=== PATIENT | female | born 2000 | race Caucasian/White ===

== ENCOUNTER 2025-08-05 04:46 | Inpatient (IN) | payer BC, SELFPAY ==
--- OUTSIDE RECORDS SUMMARY | 2025-07-22 16:30 | XMS_ITS | Encounter Summary ---
Author Organization [facility] Address [address] [place] [address] Care Team Providers Care Compressor Station Engineer Chief Name Role Phone Unavailable Primary Care Provider Unavailabl e Encounter Details DateTypeDepartmentCare Team (Latest Contact Info)Iqxshlbzckb37/18/2025 4:30 PM [facility]outine [facility] [address] [place] [phone] Merced Vasquez, CNM [address] [place] [address] Encounter for care of first , third trimester ([facility]) (Primary Dx); Elevated blood pressure affecting in second trimester, antepartum ([facility]) Social History Tobacco UseTypesPacks/DayYears UsedDateSmoking Tobacco: NeverSmokeless Tobacco: NeverAlcohol UseStandard Drinks/WeekCommentsNot Currently0 (1 standard drink = 0.6 oz pure alcohol)Estimated Date of UbfeckynXwreewpoQqw89/06/2025Based on last menstrual period of 11/02/2024 (Exact Date)Sex and Gender InformationValue Date RecordedSex Assigned at OoipkNjgnpi98/13/2025 1:56 PM ESTLegal SexFemale 11/16/2022 7:32 PM EDTGender AftcacdvMdbweo17/13/2025 1:56 PM ESTSexual QrkelauqiftDuhfcxfe61/13/2025 1:56 PM ESTdocumented as of this encounter Last Filed Vital Signs Vital SignReadingTime TakenCommentsBlood Dsbfchhw005/8011 4:17 PM EST Pulse--Temperature--Respiratory Rate--Oxygen Saturation--Inhaled Oxygen Concentration--Gmjyoz30.2 kg (185 lb 9.6 oz)07/22/2025 4:17 PM ESTHeight--Body Mass Index31.8602 12:00 PM ESTdocumented in this encounter Progress Notes * Merced Vasquez CNM - 07/22/2025 4:30 PM EST Subjective No chief complaint on file. Marcelo Alcantar is a 25 y.o. at 37w3d with a working estimated date of delivery of 08/09/2025, by Last Menstrual Period who presents for a routine visit. She denies vaginal bleeding,leakage of fluid, decreased movements, or contractions. Her is complicated by: Early elevated blood pressures. Normal since. Reviewed log today, 111/71, 120/81, 130/80,111/66, 130/80 discussed with patient and she knows to let me know if elevated to 130/90 or greater The following portions of the chart were reviewed this encounter and updated as appropriate: Objective Physical Exam Weight: 185 lb 9.6 oz Expected Total Weight Gain: 25 lb-35 lb Pregravid BMI: 24.02 BP: 128/80 Protein- neg Glucose- neg Labs HEMOGLOBIN Date Value Ref Range Status 05/20/2025 12.4 11.7 - 15.5 g/dL Final HEMATOCRIT Date Value Ref Range Status 05/20/2025 38.7 35.0 - 45.0 % Final No results found for: PAPPA , AFP , HCG , ESTRIOL , INHBA No results found for: GLUF , GLUT1 , ZQKOBUG7BO , MWEKTXN4SG Imaging Assessment/Plan Diagnoses and all orders for this visit: Encounter for care of first , third trimester ([facility]) Elevated blood pressure affecting in second trimester, antepartum ([facility]) Continue vitamin. Labs reviewed. GBS taken. Expected mode of delivery Follow up in 1 week for a routine visit. documented in this encounter Plan of Treatment DateTypeDepartmentCare Team (Latest Contact Info)Ijjprnshmwy46/17/2025 11:00 AM ESTTelemedicine [facility] [address] [place] [address] Merced Vasquez CNM [address] [place], [place] [phone] documented as of this encounter Goals GoalPatient Goal TypeAssociated ProblemsRecent ProgressPatient-Stated?Author Reminders Care PlanOB RemindersNoOpen Scheduling, Backgrounddocumented as of this encounter Visit Diagnoses Diagnosis Encounter for care of first , third trimester ([facility])- Primary Elevated blood pressure affecting in second trimester, antepartum ([facility]) documented in this encounter Additional Health Concerns Active ProblemsNoted DateDiagnosed DateOB Zvwysclho89/30/2025 documented as of this encounter
--- OUTSIDE RECORDS SUMMARY | 2025-08-04 13:00 | XMS_ITS | Encounter Summary ---
Author Organization [facility] Address [address] [place] [address] Care Team Providers Care Kiln Firer Helper Name Role Phone Unavailable Primary Care Provider Unavailabl e Encounter Details DateTypeDepartmentCare Team (Latest Contact Info)Mbuiwcmvptk26/01/2025 1:00 PM [facility]outine [facility] [address] [place] [phone] Merced Vasquez, CNM [address] [place] [address] Encounter for care of first , third trimester ([facility]) (Primary Dx); Elevated blood pressure affecting in second trimester, antepartum ([facility]) Social History Tobacco UseTypesPacks/DayYears UsedDateSmoking Tobacco: NeverSmokeless Tobacco: NeverAlcohol UseStandard Drinks/WeekCommentsNot Currently0 (1 standard drink = 0.6 oz pure alcohol)Estimated Date of QkwfekjuFcjorfcvHxb67/06/2025Based on last menstrual period of 11/02/2024 (Exact Date)Sex and Gender InformationValue Date RecordedSex Assigned at BxbbhHycaoi31/13/2025 1:56 PM ESTLegal SexFemale 11/16/2022 7:32 PM EDTGender EtsclwkfMwukyt56/13/2025 1:56 PM ESTSexual AbmbskjkyqwNuhgjjbh93/13/2025 1:56 PM ESTdocumented as of this encounter Last Filed Vital Signs Vital SignReadingTime TakenCommentsBlood Pdutcwrx795/9068108/04/2025 12:52 PM EST recheck 130/80Pulse--Temperature--Respiratory Rate--Oxygen Saturation--Inhaled Oxygen Concentration--Aqsvst70.6 kg (191 lb)08/04/2025 12:52 PM ESTHeight--Body Mass Index32.7902 12:00 PM ESTdocumented in this encounter Progress Notes * Merced Vasquez CNM - 08/04/2025 1:00 PM EST Subjective No chief complaint on file. Marcelo Alcantar is a 25 y.o. at 39w2d with a working estimated date of delivery of 08/09/2025, by Last Menstrual Period who presents for a routine visit. She denies vaginal bleeding,leakage of fluid, decreased movements, or contractions. OB History Para Term AB Living 1 0 0 0 0 0 SAB IAB Ectopic Multiple Live Births 0 0 0 0 0 # Outcome Date GA Lbr David/2nd Weight Sex Type Anes PTL Lv 1 Current Her is complicated by: elevated blood pressure occasionally in beginning of andthen normalized. She's been tracking her blood pressures at home and bringing in the log for me to review. The blood pressures have been normal Hypertension Objective Physical Exam Weight: 191 lb Expected Total Weight Gain: 25 lb-35 lb Pregravid BMI: 24.02 BP: (!) 160/100 Repeat BP was 130/80 Patient states she had a dull headache over the weekend and took a tylenol and it went away and no problems since. Urine protein-negative Urine glucose-negative Assessment/Plan Diagnoses and all orders for this visit: Encounter for care of first , third trimester ([facility]) Elevated blood pressure affecting in second trimester, antepartum ([facility]) Continue vitamin. Labs reviewed. GBS negative Expected mode of delivery vaginal Follow up in 2 weeks for a routine visit. documented in this encounter Plan of Treatment DateTypeDepartmentCare Team (Latest Contact Info)Gobvljfaons72/17/2025 11:00 AM ESTTelemedicine [facility] [address] [place] [address] Merced Vasquez, HOLLY [address] [place] [address] documented as of this encounter Goals GoalPatient Goal TypeAssociated ProblemsRecent ProgressPatient-Stated?Author Reminders Care PlanOB RemindersNoOpen Scheduling, Backgrounddocumented as of this encounter Visit Diagnoses Diagnosis Encounter for care of first , third trimester ([facility])- Primary Elevated blood pressure affecting in second trimester, antepartum ([facility]) documented in this encounter Additional Health Concerns Active ProblemsNoted DateDiagnosed DateOB Flezwsaci20/30/2025 documented as of this encounter
[2025-08-05] VITALS (72 sets, daily range): BP systolic 112–151; BP diastolic 58–92; PULSE 81–130; TEMP 36.7–36.9
--- OUTSIDE RECORDS SUMMARY | 2025-08-05 04:54 | XMS_ITS | Clinical Summary ---
Author Organization [facility] Address [id number] [place] [address] Care Team Providers Care Environmental Health Safety Manager Name Role Phone Unavailable Primary Care Provider Unavailabl e Allergies Active AllergyReactionsCriticalityNoted DateCommentsBee Venom Protein (Honey Bee)Hives04/25/2023 Medications MedicationSigDispense QuantityRefillsLast FilledStart DateEnd DateStatus melatonin 10 mg capsule Take 1 capsule (10 mg total) by mouth nightly.Active cetirizine (ZyrTEC) 10 mg tablet Take 1 tablet (10 mg total) by mouth in the morning.Active Active Problems No known active problems Immunizations ImmunizationAdministration DatesNext EsxIUsT1511/17/2005DTaP, Unspecified 05/20/2002,2001,2001,2001HPV Afqvttcabzmk39/05/2013,04/08/2013 QDK89204/26/2018Hep A, 2 Dose11/09/2018,04/26/2018Hep B / HIB2001,2001 Hep B, Adolescent or Bvlmjfvor90/12/0675ZzS8105/20/2002,2001IPV11/17/2005, 2001,2001,2001MMR11/17/2005,02/14/2002Meningococcal Conjugate 04/26/2018Tdap04/08/20137330Dhrximbvg80/08/2019,02/14/2002 Family History Medical HistoryRelationNameCommentsHypertensionFatherCOPDMaternal Grandfather HypertensionMaternal GrandfatherHypertensionMaternal GrandmotherMigrainesMother StrokePaternal GrandfatherBreast cancerNeg HxColon cancerNeg HxPancreatic cancer Neg HxProstate cancerNeg HxUterine cancerNeg HxRelationNameStatusCommentsFather Maternal GrandfatherMaternal GrandmotherMotherPaternal Grandfather Social History Tobacco UseTypesPacks/DayYears UsedDateSmoking Tobacco: NeverSmokeless Tobacco: Never Tobacco Cessation:Counseling Given: Not Answered Alcohol UseStandard Drinks/WeekCommentsNo0 (1 standard drink = 0.6 oz pure alcohol)Overall Financial Resource Strain (CARDIA)AnswerDate RecordedHow hard is it for you to pay for the very basics like food, housing, medical care, and heating?Not hard at all01/06/2024HQ-2AnswerDate RecordedTotal Kgahr625 PRAPARE - TransportationAnswerDate RecordedIn the past 12 months, has lack of transportation kept you from medical appointments or from getting medications?No 01/06/2024In the past 12 months, has lack of transportation kept you from meetings, work, or from getting things needed for daily living?No01/06/2024 Housing InstabilityAnswerDate RecordedAre you worried or concerned that in the next two months you may not have stable housing that you own, rent or stay in as a part of a household?No01/06/2024hildcareAnswerDate RecordedChildcareUnknown 2019EmploymentAnswerDate VistmxtpLizuefnkrcYpkmlbj47/12/2019Hunger ScreeningAnswerDate RecordedWithin the past 12 months we worried whether our food would run out before we got money to buy more.Never True01/09/2024Within the past 12 months the food we bought just didn't last and we didn't have money to get more.Never True01/09/2024urpose - LifeAnswerDate RecordedPurpose and direction in dsfpPniiqkg67/08/2021CommentsNoSex and Gender Information ValueDate RecordedSex Assigned at BirthNot on fileLegal BzdBnbnqg08/06/2015 11:58 AM EDTGender IdentityNot on fileSexual OrientationNot on file Last Filed Vital Signs Vital SignReadingTime TakenCommentsBlood Heveohfq461/8005 1:33 PM EDT Sfcmh313901/09/2024 1:33 PM KZLKwvlzdtqflj83.3 ??C (99.2 ??F)01/09/2024 1:33 PM EDTRespiratory Caii668401/09/2024 1:33 PM EDTOxygen Lbvrqarimt70%04/25/2023 2:19 PM EDTInhaled Oxygen Concentration--Rdkccm36.3 kg (159 lb 8 oz)01/09/2024 1:33 PM OSSZrkcez003.6 cm (5' 4 )01/09/2024 1:33 PM EDTBody Mass Index27.38001/09/2024 1:33 PM EDT Plan of Treatment Health MaintenanceDue DateLast DoneCommentsChlamydia Xkosgxevj2001 DTaP,Tdap and Td Vaccines (7 - Td or Tdap)/01/2013, 11/17/2005, 05/20/2002, Additional history existsAdult BMI Mqoqxvrxp70 Depression Hysikewhq27Tobacco Xaruonrwi01 COVID-19 Vaccine ( season)/, 11/27/2020, 10/28/2020Influenza Dqqbzbw9105/05/2025Pap Smear Medical Devices Not on file Procedures Procedure NamePriorityDate/TimeAssociated DiagnosisCommentsPAP SMEARRoutine 09/14/2022 6:23 AM EST Screening for cervical cancer from Last 3 Months or Most Recently Relevant to Health Maintenance Results * Pap Smear (09/14/2022 6:23 AM EST)Specimen (Source)Anatomical Location / LateralityCollection Method / VolumeCollection TimeReceived Time09/14/2022 6:23 AM EST09/14/2022 6:24 AM EST Narrative [facility] - 09/15/2022 11:54 AM EST [facility] ? [address] [place] [address] ? [place] [address] ? Gynecologic Cytology Consultation ? Patient Name:MARCELO ALCANTAR:2000 (Age: 22)Gender:FTaken:09/14/2022Reported:09/15/2022hysician(s):MIAH SINGH CShaniaNShaniaMShania ([phone])Copy To: Rec. #:[id number]: #[id number] Final Cytologic Interpretation ThinPrep Pap Test (Cervical): Satisfactory for evaluation. A transformation zone component is present. NEGATIVE FOR INTRAEPITHELIAL LESION OR MALIGNANCY. ?? gxo/09/15/2022 Interpretation performed at [facility], [address] [place] [address], License number: [id number]. Electronically Signed Out By ?Dinah Stevenson Date of Last Menstrual Period: ? 07/22/22 Other Clinical Conditions: Z12.4 Screening for malignant neoplasm of cervix Source of Specimen ??ThinPrep Pap Test (Cervical) ? Thin Prep Pap (PICKER OPERATOR) Fee Code(s): ?? G0145 Authorizing ProviderResult TypeResult StatusMiah Singh ELECTRONIC SYSTEM ENGINEER-CNM PATHOLOGY/CYTOLOGY ORDERABLESFinal ResultPerforming OrganizationAddress City/State/ZIP CodePhone Number COPATH from Last 3 Months or Most Recently Relevant to Health Maintenance Insurance
--- OUTSIDE RECORDS SUMMARY | 2025-08-05 04:54 | XMS_ITS | Encounter Summary ---
Author Organization [facility] Address [address] [place] [address] Care Team Providers Care Automotive Glass Technician Name Role Phone Unavailable Primary Care Provider Unavailabl e Encounter Details DateTypeDepartmentCare Team (Latest Contact Info)Unwuwkogaxn41/01/2025amboo flowsheet [facility] [address] [place] [phone] Merced Vasquez CNM [address] [place], [place] [phone] Social History Tobacco UseTypesPacks/DayYears UsedDateSmoking Tobacco: NeverSmokeless Tobacco: NeverAlcohol UseStandard Drinks/WeekCommentsNot Currently0 (1 standard drink = 0.6 oz pure alcohol)Estimated Date of SinyagjfVonutnvcGxn62/06/2025Based on last menstrual period of 11/02/2024 (Exact Date)Sex and Gender InformationValue Date RecordedSex Assigned at HbpfaQabola74/13/2025 1:56 PM ESTLegal SexFemale 11/16/2022 7:32 PM EDTGender BmiymiapJurkgn79/13/2025 1:56 PM ESTSexual PrnoidoqlpyIhfwqmrv96/13/2025 1:56 PM ESTdocumented as of this encounter Plan of Treatment DateTypeDepartmentCare Team (Latest Contact Info)Hwwtgvyfoqq29/17/2025 11:00 AM ESTTelemedicine [facility] [address] [place] [address] Merced Vasquez, CNM [address] [place], [place] [phone] documented as of this encounter Goals GoalPatient Goal TypeAssociated ProblemsRecent ProgressPatient-Stated?Author Reminders Care PlanOB RemindersNoOpen Scheduling, Backgrounddocumented as of this encounter Visit Diagnoses Not on filedocumented in this encounter Additional Health Concerns Active ProblemsNoted DateDiagnosed DateOB Hefckltpa73/30/2025 documented as of this encounter
--- OUTSIDE RECORDS SUMMARY | 2025-08-05 04:54 | XMS_ITS | Encounter Summary ---
Author Organization [facility] Address [address] [place] [address] Care Team Providers Care Rail Car Operator Name Role Phone Unavailable Primary Care Provider Unavailabl e Encounter Details DateTypeDepartmentCare Team (Latest Contact Info)Cxziyobomkz08/24/2025Travel Social History Tobacco UseTypesPacks/DayYears UsedDateSmoking Tobacco: NeverSmokeless Tobacco: NeverAlcohol UseStandard Drinks/WeekCommentsNot Currently0 (1 standard drink = 0.6 oz pure alcohol)Estimated Date of IhvbvljtHruchpskVwq63/06/2025ased on last menstrual period of 11/02/2024 (Exact Date)Sex and Gender InformationValue Date RecordedSex Assigned at MztlkOziiog23/13/2025 1:56 PM ESTLegal SexFemale 11/16/2022 7:32 PM EDTGender CevjlwctFqvewj38/13/2025 1:56 PM ESTSexual MkwihnxrvkaLxmandsn49/13/2025 1:56 PM ESTdocumented as of this encounter Plan of Treatment DateTypeDepartmentCare Team (Latest Contact Info)Jjugsmqfqlo17/17/2025 11:00 AM ESTTelemedicine [facility] [address] [place] [address] Merced Vasquez CNM [address] [place], [place] [phone] documented as of this encounter Goals GoalPatient Goal TypeAssociated ProblemsRecent ProgressPatient-Stated?Author Reminders Care PlanOB RemindersNoOpen Scheduling, Backgrounddocumented as of this encounter Visit Diagnoses Not on filedocumented in this encounter Additional Health Concerns Active ProblemsNoted DateDiagnosed DateOB Sglzyldgn00/30/2025 documented as of this encounter
--- OUTSIDE RECORDS SUMMARY | 2025-08-05 04:54 | XMS_ITS | Clinical Summary ---
Author Organization [facility] Healthcare Address [address] [place] [address] Care Team Providers Care Client Partner Name Role Phone Unavailable Primary Care Provider Unavailabl e Allergies Active AllergyReactionsCriticalityNoted DateCommentsBee EgrxwOdtfs02/22/2023 Medications MedicationSigDispense QuantityRefillsLast FilledStart DateEnd DateStatus MV-Min-Fe Fum-FA-DHA ( 1 PO) Take by mouthActive BABY ASPIRIN PO Take by mouthActive Encounters DateTypeDepartmentCare UttxIfezhnxhden29/01/2025 1:00 PM ESTRoutine [facility] [place] [facility] [address] [place] [address] Merced Vasquez CNM Encounter for care of first , third trimester ([facility]) (Primary Dx); Elevated blood pressure affecting in second trimester, antepartum ([facility])5Bamboo flowsheet [facility] [place] [facility] [address] [place] [address] Merced Vasquez CNM 07/28/20258788Gatgrj16/18/2025 4:30 PM ESTRoutine [facility] [address] [address] [place] [address] Merced Vasquez CNM Encounter for care of first , third trimester ([facility]) (Primary Dx); Elevated blood pressure affecting in second trimester, antepartum ([facility])07/22/2025phaneuf hospital flowsheet JUSTIN [facility] [address] [facility] [address] Merced Vasquez CNM 07/15/2025 4:15 PM ESTRoutine [facility] [address] [facility] [place] [phone] Merced Vasquez CNM Encounter for care of first , third trimester ([facility]) (Primary Dx); screening for streptococcus B ([facility])07/15/2025phaneuf hospital flowsheet JUSTIN [address] [facility] [address] Merced Vasquez CNM 07/15/20251498Izanzn70/04/0750Mirhqg51/30/2025 4:30 PM EDTRoutine JUSTIN [facility] [facility] [phone] Merced Vasquez CNM Encounter for care of first , third trimester ([facility]) (Primary Dx)07/03/2025phaneuf hospital flowsheet JUSTIN [facility] [address] [facility] [address] Merced Vasquez CNM 06/27/20258177Boxmsh73/14/2025 11:00 AM EDTRoutine JUSTIN [address] [facility] [address] Merced Vasquez CNM Encounter for care of first , third trimester ([facility]) (Primary Dx)06/17/2025phaneuf hospital flowsheet JUSTIN [facility] [facility] [address] Merced Vasquez CNM 06/16/20257135Dhklso65/06/1238Iqlbmy23/25/2025 3:45 PM EDTRoutine NOM[facility]iz [address] [place] [address] Merced Vasquez, HOLLY related condition in third trimester ([facility])05/29/2025 2:30 PM EDT Ancillary Procedure [facility] [address] [place] [address] related condition in third trimester ([facility])05/29/2025Travel 05/29/2025amboo flowsheet [facility] [address] [place] [address] Merced Vasquez CNM 05/22/2025Travelfrom Last 3 Months Family History Medical HistoryRelationNameCommentsHypertensionFatherRelationNameStatusComments FatherAliveMotherAlive Social History Tobacco UseTypesPacks/DayYears UsedDateSmoking Tobacco: NeverSmokeless Tobacco: Never Tobacco Cessation:Counseling Given: Not Answered Alcohol UseStandard Drinks/WeekCommentsNot Currently0 (1 standard drink = 0.6 oz pure alcohol)Estimated Date of TfyvobbzBzgeludxWvq97/06/2025ased on last menstrual period of 11/02/2024 (Exact Date)Sex and Gender InformationValue Date RecordedSex Assigned at RpcelCzpstu28/13/2025 1:56 PM ESTLegal SexFemale 11/16/2022 7:32 PM EDTGender TxzxxfaiMzpxlt08/13/2025 1:56 PM ESTSexual BnfhrivdkyhYhqfvtjw41/13/2025 1:56 PM EST Last Filed Vital Signs Vital SignReadingTime TakenCommentsBlood Sifdxxjr620/9882408/04/2025 12:52 PM EST recheck 130/80Pulse--Temperature--Respiratory Rate--Oxygen Saturation--Inhaled Oxygen Concentration--Thqzwi86.6 kg (191 lb)08/04/2025 12:52 PM CFPCloymd149.6 cm (5' 4 )10/15/2019 12:00 PM ESTBody Mass Index32.7910/15/2019 12:00 PM EST Plan of Treatment DateTypeDepartmentCare Team (Latest Contact Info)Gywiqmpthym72/17/2025 11:00 AM ESTTelemedicine [facility] [address] [place] [address] Merced Vasquez, CNM [address] [place], [place] [phone] Goals GoalPatient Goal TypeAssociated ProblemsRecent ProgressPatient-Stated?Author Reminders Care PlanOB RemindersNoOpen Scheduling, Background Procedures Procedure NamePriorityDate/TimeAssociated DiagnosisCommentsSTREPTOCCOUS, GROUP B WENSLEHYalzvjx25/12/2025 7:50 AM EST screening for streptococcus B ([facility]) OB FOLLOW UP TRANSABDOMINAL ICYHBXUFWkkxwky93/25/2025 4:14 PM EDT related condition in third trimester ([facility]) GLUCOSE, GESTATIONAL SCREEN (50G)-135 OEKZZIVjfdblc78/16/2025 11:27 AM EDT Encounter for care of first , second trimester ([facility]) ITBAjjekxt69/16/2025 11:27 AM EDT Encounter for care of first , second trimester ([facility]) from Last 3 Months Results * STREPTOCCOUS, GROUP B CULTURE (07/16/2025 7:50 AM EST)ComponentValueRef Range Test MethodAnalysis TimePerformed AtPathologist SignatureMICRO [id number] QUESTSPECIMEN QUALITYAdequateQUESTSOURCEVAGINAL/ANORECTALQUESTSTATUSFINALQUEST RESULTSEE NOTEQUESTComment: No group B Streptococcus isolated COMMENTSEE NOTEQUESTComment: Note per CDC guidelines optimal recovery is achieved by swabbing both the lower vagina and rectum (through the anal sphincter). Specimen (Source)Anatomical Location / LateralityCollection Method / Volume Collection TimeReceived Time07/16/2025 7:50 AM EST07/16/2025 7:51 AM EST Narrative Resulting Agency Comment Performing Organization Information ?Site ID: QPT ?Name: [facility] [facility] ?Address: [address] [place] [address], [address] [place], [place] [phone] ?Director: Kj Rodriguez MD Authorizing ProviderResult TypeResult StatusValenelson Vasquez CNMLAB BODY FLUIDS AND STOOLS ORDERABLESFinal ResultPerforming OrganizationAddressCity/State/ZIP CodePhone Number [facility] * US OB follow up transabdominal approach (05/29/2025 4:14 PM EDT)Anatomical RegionLateralityModalityBodyUltrasoundSpecimen (Source)Anatomical Location / LateralityCollection Method / VolumeCollection TimeReceived Time05/30/2025 11:26 AM EDT Impressions 05/30/2025 11:34 AM EDT Single, live intrauterine , current sonographic age of 29 weeks and 6 days, with an estimated date of delivery of August 08, 2025 (prior EUGENE August 11, 2025). . * ??Estimated Weight (g) by Percentile is based upon an accurate estimated age based onlast menstrual period. ?? TRANSCRIBED BY: ? ELECTRONICALLY SIGNED BY: Thee Sauceda MD Narrative 05/30/2025 11:34 AM EDT FINDINGS: Comparison March 27, 2025. A single, live intrauterine is present with normal cardiac rate of 141 beats per minute. Normal activity and amniotic fluid volume. Amniotic fluid index is 18 cm. ??Morphology is grossly normal. The cervix is long and closed, 4.7 cm. ??The placenta is anterior, not associated with the cervical os. ??The current sonographic age is 29 weeks and 6 days, based on the following measurements: ?BPD ? 7.3 cm (29 weeks, 3 days) ?Head Circumference ?27.1 cm (29 weeks, 4 days) ?Abdominal Circumference ?26.4 cm (30 weeks, 4 days) ?Femur Length ? 5.8 cm (30 weeks, 1 day) ?Presentation ? Anterior Grade 0 ?Placenta ? Cephalic ? Weight (g) by Percentile ??55.6 % * These measurements result in an estimated date of delivery of August 08, 2025 ?? The current estimated weight is 1535 grams (3 pounds, 6 ounces). ?? Procedure Note Thee Sauceda MD - 05/30/2025 FINDINGS: Comparison March 27, 2025. A single, live intrauterine is present with normal cardiacrate of 141 beats per minute. Normal activity and amniotic fluidvolume. Amniotic fluid index is 18 cm. Morphology is grossly normal. Thecervix is long and closed, 4.7 cm. The placenta is anterior, notassociated with the cervical os. The current sonographic age is 29 weeksand 6 days, based on the following measurements: BPD 7.3 cm (29 weeks, 3 days) Head Circumference 27.1 cm (29 weeks, 4 days) Abdominal Circumference 26.4 cm (30 weeks, 4 days) Femur Length 5.8 cm (30 weeks, 1 day) Presentation Anterior Grade 0 Placenta Cephalic Weight (g) by Percentile 55.6 % * These measurements result in an estimated date of delivery of August The current estimated weight is 1535 grams (3 pounds, 6ounces). IMPRESSION: Single, live intrauterine , current sonographic age of 29 weeksand 6 days, with an estimated date of delivery of August 08, 2025 (priorEDD August 11, 2025). . * Estimated Weight (g) by Percentile is based upon an accurateestimated age based on last menstrual period. TRANSCRIBED BY: ELECTRONICALLY SIGNED BY: Thee Sauceda MD Authorizing ProviderResult TypeResult StatusValerireinaldo Vasquez [facility] US PROCEDURESFinal Result * GLUCOSE, GESTATIONAL SCREEN (50G)-135 CUTOFF (05/20/2025 11:27 AM EDT) ComponentValueRef RangeTest MethodAnalysis TimePerformed AtPathologist SignatureGLUCOSE, GESTATIONAL SCREEN (50G)-135 IIYHAL905<135 mg/dLQUEST Specimen (Source)Anatomical Location / LateralityCollection Method / Volume Collection TimeReceived Time05/20/2025 11:27 AM EDT05/20/2025 11:28 AM EDT Narrative Resulting Agency Comment Performing Organization Information ?Site ID: QPT ?Name: [facility] ?Address: [address] [place] [address], [address] [place] [phone] ?Director: Kj Rodriguez MD Authorizing ProviderResult TypeResult StatusValerireinaldo Vasquez [facility] BLOOD ORDERABLESFinal ResultPerforming OrganizationAddressCity/State/ZIP CodePhone Number [facility] * (ABNORMAL) CBC (05/20/2025 11:27 AM EDT)ComponentValueRef RangeTest Method Analysis TimePerformed AtPathologist SignatureWHITE BLOOD CELL COUNT11.8(H)3.8 - 10.8 Thousand/uLQUESTRED BLOOD CELL COUNT3.903.80 - 5.10 Million/uLQUEST RMWOFLKQWY69.411.7 - 15.5 g/yCJXWKTDGDHZKHBXE99.735.0 - 45.0 %BTPUFJWW07.280.0 - 100.0 pSVYEEQVLU62.827.0 - 33.0 kzWZOUMDQYN34.032.0 - 36.0 g/dLQUESTComment: For adults, a slight decrease in the calculated MCHC value (in the range of 30 to 32 g/dL) is most likely not clinically significant; however, it should be interpreted with caution in correlation with other red cell parameters and the patient's clinical condition. RDW12.411.0 - 15.0 %QUESTPLATELET [id number] - 400 Thousand/zPCPTUPVAP81.37.5 - 12.5 fLQUESTSpecimen (Source)Anatomical Location / LateralityCollection Method / VolumeCollection TimeReceived TimeBloodVenous blood specimen / Panlwpw4105/20/2025 11:27 AM EDT05/20/2025 11:28 AM EDT Narrative Resulting Agency Comment Performing Organization Information ?Site ID: QPT ?Name: [facility] [facility] ?Address: [address] [place] [address], [address] [place] [phone] ?Director: Kj Rodriguez MD Authorizing ProviderResult TypeResult StatusValenelson Vasquez CNMLAB BLOOD ORDERABLESFinal ResultPerforming OrganizationAddressCity/State/ZIP CodePhone Number [facility] from Last 3 Months Additional Health Concerns Active ProblemsNoted DateDiagnosed DateOB Qifhcount20/30/2025 Insurance
--- OUTSIDE RECORDS SUMMARY | 2025-08-05 04:54 | XMS_ITS | Encounter Summary ---
Author Organization [facility] Address [address] [place] [address] Care Team Providers Care Railroad Track Inspector Name Role Phone Unavailable Primary Care Provider Unavailabl e Encounter Details DateTypeDepartmentCare Team (Latest Contact Info)[place]hn[place]astnj00/18/2025Bamboo flowsheet JUSTIN [facility] [address] [place] [phone] Merced Vasquez CNM [address] [place], [place] [phone] Social History Tobacco UseTypesPacks/DayYears UsedDateSmoking Tobacco: NeverSmokeless Tobacco: NeverAlcohol UseStandard Drinks/WeekCommentsNot Currently0 (1 standard drink = 0.6 oz pure alcohol)Estimated Date of LdnqicthQqciuxlwQmc86/06/2025Based on last menstrual period of 11/02/2024 (Exact Date)Sex and Gender InformationValue Date RecordedSex Assigned at OpztaDrauit30/13/2025 1:56 PM ESTLegal SexFemale 11/16/2022 7:32 PM EDTGender EuhfmpomZlllwx19/13/2025 1:56 PM ESTSexual XutzynrovxaKqskpbya50/13/2025 1:56 PM ESTdocumented as of this encounter Plan of Treatment DateTypeDepartmentCare Team (Latest Contact Info)Mivbuqavrsx75/17/2025 11:00 AM ESTTelemedicine JUSTIN [facility] [address] [place] [address] Merced Vasquez, CNM [address] [place], [place] [phone] documented as of this encounter Goals GoalPatient Goal TypeAssociated ProblemsRecent ProgressPatient-Stated?Author Reminders Care PlanOB RemindersNoOpen Scheduling, Backgrounddocumented as of this encounter Visit Diagnoses Not on filedocumented in this encounter Additional Health Concerns Active ProblemsNoted DateDiagnosed DateOB Negwcdiww20/30/2025 documented as of this encounter
[2025-08-05 05:49] LABS: Hematocrit 40.6 % (36.0-48.0); Hemoglobin 13.7 g/dL (12.0-16.0); Mean Corpuscular HGB Conc 33.7 g/dL (29.9-35.2); Mean Corpuscular Hemoglobin 31.5 pg (26.7-34.0); Mean Corpuscular Volume 93.3 fL (81.0-99.0); Platelet Count 208 10^3/uL (150-450); Red Blood Count 4.35 10^6/uL (4.20-5.40); White Blood Count 13.4 10^3/uL (4.0-11.0)
[2025-08-05 05:59] LABS: Cannabinoid Screen Urine NEGATIVE (NEGATIVE); Methamphetamines Screen Urine NEGATIVE (NEGATIVE); Tricyclic Antidepressant Urine NEGATIVE (NEGATIVE)
[2025-08-05] MEDS: OXYTOCIN/0.9 % SODIUM CHLORIDE 10 UNITS/500 ML PLAST..BAG 6 UNIT IV (06:03)
--- NOTE | 2025-08-05 09:13 | P.OBHP_ITS ---
OB - H&P: HPI History of Present Illness Chief complaint: INDUCTION : 1 Para: 0 Gestational age based on last menstrual period: 39.3 Comments: patient had elevation of blood pressure a couple of times throughout , and monitored it at home. blood pressures were normal when logging. She had normal blood pressures in the office History of Present Dating criteria: LMP confirmed by 1st trimester US care: good care Ultrasounds: normal 1st trimester US and normal mid trimester US complications comment: history of headaches before , on magnesium without problems Medical complications OB: none Labs Blood type: O (+) positive Rubella: immune RPR/VDLR: nonreactive GBS status: negative HBsAG: negative Review of Systems ROS Status of ROS: 10 or more systems reviewed and unremarkable except as noted in history and below PFSH PFSH Surgical History (Updated 08/05/25 @ 06:01 by Cheryl Eaton LPN) Hx of tonsillectomy ?Z90.89 - Acquired absence of other organs (ICD-10) Family History (Updated 08/05/25 @ 06:09 by Cheryl Eaton LPN) Other Family history of hypertension Social History Little interest or pleasure in doing things: not at all Feeling down, depressed, or hopeless: not at all Meds Home Medications and Allergies Home Medications ?Medication ?Instructions ?Recorded ?Confirmed ?Type aspirin 81 mg tablet,delayed 81 mg PO DAILY 08/05/25 1 10/06/24 History release (Adult Low Dose Aspirin) magnesium tab PO DAILY 08/05/25 Histo ry Allergies Allergy/AdvReac Type Severity Reaction Status Date / Time bee venom protein (honey bee) Allergy Intermediate swelling Verified 08/05/25 05:15 Exam Constitutional Vital Signs, click to edit/add: Last Vital Signs Temp 98.5 F 08/05/25 08:21 Pulse 89 08/05/25 08:57 BP 134/77 08/05/25 08:57 Documenting provider has reviewed patient's vital signs: yes Common normals: average body habitus and oriented x3 General appearance: cooperative, comfortable and well kempt Orientation/consciousness: Yes awake, Yes oriented to person, Yes oriented to place and Yes oriented to time HENMT Common normals: normocephalic Eye Common normals: EOMs intact bilaterally General eye: normal appearance of both eyes Neck & C-Spine Common normals: full ROM and no lymphadenopathy Lymph Lymphatic: no lymphadenopathy noted Respiratory Common normals: normal respiratory effort, no retractions, no use of accessory muscles and clear to auscultation bilaterally Effort & inspection: able to speak in complete sentences Cardio Common normals: regular rate and regular rhythm Rate: regular rate Rhythm: regular rhythm GI Common normals: Normal to inspection, nondistended, normoactive bowel sounds present Inspection: normal to inspection Auscultation: normoactive bowel sounds Palpation: soft Percussion: normal to percussion Rectal Exam - Female: deferred Common normals: no CVA tenderness Back & Pelvis Common normals: no CVA tenderness Extremity Common normals: normal to inspection General: normal exam except as noted Neuro Common normals: oriented x3 Sensorium/orientation: awake, alert, oriented to person, oriented to place and oriented to time Psych Common normals: mental status grossly normal, thought process normal, cooperative, affect normal, speech normal, activity/motor behavior normal, denies hallucinations, denies homicidal ideation and denies suicidal ideation Attitude: calm Activity/motor behavior: appropriate eye contact Results Labs Labs: Short CBC 08/05/25 Range/Units 05:15 WBC 13.4 H (4.0-11.0) 10^3/uL Hgb 13.7 (12.0-16.0) g/dL Hct 40.6 (36.0-48.0) % Plt Count 208 (150-450) 10^3/uL OB - A/P Assessment and Plan (1) Term :
--- NOTE | 2025-08-05 09:29 | PM.EN ---
Event Note Event Note: to room for assessment, VE 2-3/-2. patient is comfortable at this time. AROM performed with sterile amnihook with return of a large amount of clear odorless fluid. heart tone stable before, during and after rupture of membranes. patient tolerated procedure well.
[2025-08-05] MEDS: ROPIVACAINE HCL/PF 400 MG/200 ML PREMIX 6 MG EPIDURAL (16:08)
[2025-08-05] MEDS: ACETAMINOPHEN 500 MG TABLET 1000 MG PO (19:17)
[2025-08-05] MEDS: OXYTOCIN/0.9 % SODIUM CHLORIDE 20 UNITS/1,000 ML PLAST..BAG 125 UNIT IV (21:05)
--- NOTE | 2025-08-05 21:43 | PM.OBPRCVD ---
Procedure Procedure: with repair of second degree perineal laceration and right labial laceration events: Labor Induction and Labor Augmentation Intrapartal events: None Induction method: per pitocin protocol Delivery augmentation: rupture of membranes Delivery monitor: external FHT and external uterine Route of delivery: Episiotomy Description: none L&D Laceration Description: perineal - 2nd degree and labial (right labial lac) Delivery repair: Vicryl Estimated blood loss (mL): 200 Anesthesia type: Epidural Disposition: PACU Infant Delivery date: 08/05/25 Gender: male presentation: vertex Placental delivery description: Spontaneous cord description: 3 Vessels heart rate - 1 minute: 100 bpm or Greater respiratory effort - 1 minute: Spontaneous/Strong Cry muscle tone - 1 minute: Active Movement reflex response - 1 minute: Prompt Response color - 1 minute: Bluish Hands or Feet total score - 1 minute: 9 heart rate - 5 minute: 100 bpm or Greater respiratory effort - 5 minute: Spontaneous/Strong Cry muscle tone - 5 minute: Active Movement reflex response - 5 minute: Prompt Response color - 5 minute: Bluish Hands or Feet total score - 5 minute: 9
[2025-08-05] MEDS: IBUPROFEN 600 MG TABLET 800 MG PO (23:10)
[2025-08-05] MEDS: BENZOCAINE/MENTHOL 85 GRAM SPRAY BOTTLE 1 APPLIC TOPICAL (23:10)
[2025-08-05] MEDS: GLYCERIN/WITCH HAZEL PADS 1 PAD TOPICAL (23:10)
[2025-08-06] VITALS (9 sets, daily range): BP systolic 120–129; BP diastolic 69–75; PULSE 88–109; TEMP 36.5–37.1
[2025-08-06 06:13] LABS: Hematocrit 32.7 % (36.0-48.0); Hemoglobin 10.8 g/dL (12.0-16.0); Immature Granulocytes Abs Auto 0.11 10^3/uL (0.00-0.03); Immature Granulocytes Pct Auto 0.7 % (0.0-0.5); Lymphocytes Absolute Auto 1.9 10^3/uL (1.2-3.8); Mean Corpuscular HGB Conc 33.0 g/dL (29.9-35.2); Mean Corpuscular Hemoglobin 31.2 pg (26.7-34.0); Mean Corpuscular Volume 94.5 fL (81.0-99.0); Platelet Count 171 10^3/uL (150-450); Red Blood Count 3.46 10^6/uL (4.20-5.40); White Blood Count 15.0 10^3/uL (4.0-11.0)
[2025-08-06] MEDS: IBUPROFEN 400 MG TABLET 800 MG PO ×3 (07:51→23:27)
[2025-08-06] MEDS: DOCUSATE SODIUM 100 MG CAPSULE PO (23:23)
--- NOTE | 2025-08-07 09:07 | P.OBPN_ITS ---
OB - PN: Subj Subjective Patient comments: no complaints and pain well controlled [place] status: doing well Exam Constitutional Vital Signs, click to edit/add: Last Vital Signs Temp 97.7 F 08/06/25 23:28 Pulse 105 H 08/06/25 23:28 Resp 16 08/06/25 23:28 BP 121/69 08/06/25 23:28 O2 Del Method Room Air 08/06/25 23:29 Documenting provider has reviewed patient's vital signs: yes Common normals: no apparent distress Respiratory Common normals: normal respiratory effort and clear to auscultation bilaterally Cardio Common normals: regular rate and regular rhythm GI Common normals: Normal to inspection, nondistended, normoactive bowel sounds present Extremity Common normals: no clubbing, cyanosis or edema and no calf tenderness OB - PN: A/P Assessment and Plan (1) Term : Plan - Vaginal Delivery day: 2 Plan: routine care, discharge home and follow up 6 weeks Time Spent with Patient Time: Total time spent is greater than 50% in coordination of care (as documented) at patient's floor/unit and/or counseling patient: Total time spent with greater than 50% in coordination of care (as documented) at patient's floor/unit and/or counseling patient: less than 15 minutes
[2025-08-07 10:45] VITALS: BP 157/83; PULSE 120
[2025-08-07] MEDS: IBUPROFEN 400 MG TABLET 800 MG PO (12:05)
[2025-08-07] MEDS: DOCUSATE SODIUM 100 MG CAPSULE PO (12:06)
[2025-08-07 14:57] VITALS: BP 130/76; PULSE 108
[2025-08-07 15:40] VITALS: TEMP 37
== END 2025-08-07 15:50 | disposition home or self-care (01) | DRG 807 ==
PROVIDERS: Admitting Provider Midwife; Family Provider Family Medicine; Visit Provider Midwife
DX: O70.1 Second degree perineal laceration during delivery (principal); Z37.0 Single live birth; Z3A.39 39 weeks gestation of pregnancy
CPT/HCPCS: 36415; 51702; 59050; 59410; 80307; 85025; 85027; 86850; 86900; 86901; J0665; J2795

== ENCOUNTER 2025-08-12 08:30 | Outpatient (OUT) | payer BC, SELFPAY ==
[2025-08-12 12:10] VITALS: BP 127/84; PULSE 96; TEMP 37; O2SAT 96
== END 2025-08-12 12:17 | disposition home or self-care (01) ==
PROVIDERS: Family Provider Family Medicine; Visit Provider Obstetrics & Gynecology
DX: Z39.2 Encounter for routine postpartum follow-up (principal)